=== PATIENT | female | born 1955 | race Caucasian/White ===

== ENCOUNTER → 2023-02-26 | Outpatient (CLI) | payer MEDICARE | LOC: M WHC 10:47 | PROVIDERS: ATTEND Internal Medicine | DX: Z12.31 Encounter for screening mammogram for malignant neoplasm of breast (principal); Z13.820 Encounter for screening for osteoporosis; M85.88 Other specified disorders of bone density and structure, other site; N63.23 Unspecified lump in the left breast, lower outer quadrant ==

== ENCOUNTER → 2023-03-10 | Outpatient (CLI) | payer MEDICARE | LOC: M WHC 13:34 | PROVIDERS: ATTEND Internal Medicine | DX: N63.25 Unspecified lump in the left breast, overlapping quadrants (principal); R92.8 Other abnormal and inconclusive findings on diagnostic imaging of breast ==

== ENCOUNTER → 2023-04-03 | Outpatient (CLI) | payer MEDICARE ==
[2023-04-03 13:21] VITALS: TEMP 98.3
[2023-04-07 08:21] VITALS: BP 124/78; O2SAT 98
== END ==
LOC: M WHCPRO 08:11
PROVIDERS: ATTEND Internal Medicine
DX: R92.2 Inconclusive mammogram (principal); C50.512 Malignant neoplasm of lower-outer quadrant of left female breast

== ENCOUNTER → 2023-05-21 | Outpatient (CLI) | payer MEDICARE, OTHER ==
[~2023-05-21] MED LIST: ARIP1TAB4 PO; BENZ200C70 PO; FARX1TAB3 PO; FLUO20CA22 PO; METF10004 PO; ONETTES13; ROSU20TA61 PO; TRIA37.577
== END ==
LOC: M RAD 10:08
PROVIDERS: ATTEND Internal Medicine
DX: R10.2 Pelvic and perineal pain (principal)

== ENCOUNTER → 2024-02-05 | Outpatient (CLI) | payer MEDICARE, MEDICAID ==
[~2024-02-05] MED LIST changes: +FLUO-365 PO; -FLUO20CA22 PO; +ISOVUE-370 76% 100ML VIAL ONE; +LETR2.5T2 PO
== END ==
LOC: M PLAIMG 12:56
PROVIDERS: ATTEND Internal Medicine
DX: R59.0 Localized enlarged lymph nodes (principal); E04.1 Nontoxic single thyroid nodule
CPT/HCPCS: 70491; Q9967

== ENCOUNTER → 2024-03-04 | Outpatient (CLI) | payer MEDICARE, MEDICAID ==
[~2024-03-04] MED LIST changes: -ISOVUE-370 76% 100ML VIAL ONE; -ROSU20TA61 PO; +ROSU20TA86 PO
== END ==
LOC: M WHC 13:28
PROVIDERS: ATTEND Internal Medicine
DX: R59.0 Localized enlarged lymph nodes (principal); E04.1 Nontoxic single thyroid nodule

== ENCOUNTER → 2024-03-30 | Outpatient (CLI) | payer MEDICARE, MEDICAID ==
[~2024-03-30] MED LIST changes: +LIDOCAINE 1% MDV 20ML VIAL As Ordered ONE
[2024-03-30 12:35] VITALS: BP 139/79; TEMP 98.2; O2SAT 97
== END ==
LOC: M IRPRO 12:17
PROVIDERS: ATTEND Otolaryngology
DX: E04.1 Nontoxic single thyroid nodule (principal)

== ENCOUNTER → 2025-02-28 | Outpatient (CLI) | payer MEDICARE, MEDICAID ==
[~2025-02-28] MED LIST changes: +EXEM25TA PO; -LIDOCAINE 1% MDV 20ML VIAL As Ordered ONE; +TIRZ2.5P
== END ==
LOC: M WHC 09:46
DX: C50.919 Malignant neoplasm of unspecified site of unspecified female breast (principal); M85.89 Other specified disorders of bone density and structure, multiple sites

== ENCOUNTER → 2025-04-13 | Outpatient (CLI) | payer MEDICARE, MEDICAID | LOC: M RAD 13:21 | PROVIDERS: ATTEND Otolaryngology | DX: E04.1 Nontoxic single thyroid nodule (principal) ==